=== PATIENT | male | born 1950 | race Two or more races ===

== ENCOUNTER 2017-03-16 20:02 | Inpatient (IN) | payer MEDICARE, OTHER ==
[~2017-03-16] VITALS: Ht 180.3 cm; Wt 89.0 kg
--- NOTE | 2017-03-16 20:12 | NUR ---
TO BED 1 A 66 YO MALE BIBSELF W C/O MID ANTERIOR SHARP ABDOMINAL PAIN 02/27 SINCE 1699. DENIES N/V/D. VSS. NONDIAPHORETIC. AFEBRILE. COMFORT MEASURES RENDERED. AWAITING FOR ER MD ABDUL.
--- NOTE | 2017-03-16 20:18 | NUR ---
DR FLORES AT BEDSIDE TO EVAL.
--- NOTE | 2017-03-16 20:34 | NUR ---
PATIENT TO CT.
--- NOTE | 2017-03-16 20:49 | NUR ---
STARTED A SALINE LOCK ON THE LFA G20.
[2017-03-16 20:56] LABS: BASOPHILS % (AUTO) 0.5 % (0.0-2.0); EOSINOPHILS # (AUTO) 0.1 /CMM (0.0-0.7); EOSINOPHILS % (AUTO) 0.9 % (0.0-6.0); HEMATOCRIT 46 % (39-51); HEMOGLOBIN 15.3 g/dL (13.5-17.5); LYMPHOCYTES # (AUTO) 1.5 /CMM (0.8-4.8); LYMPHOCYTES % (AUTO) 16.6 % (20.0-44.0); MEAN CORPUSCULAR HEMOGLOBIN 30 PG (26.0-33.0); MEAN CORPUSCULAR HGB CONC 33 g/dl (31.0-36.0); MEAN CORPUSCULAR VOLUME 90 fL (80-96); MONOCYTES # (AUTO) 0.7 /CMM (0.1-1.30); MONOCYTES % (AUTO) 8.2 % (2.0-12.0); NEUTROPHILS # (AUTO) 6.7 /CMM (1.8-8.9); NEUTROPHILS % (AUTO) 73.8 % (43.0-81.0); PLATELET COUNT (AUTO) 306 /CMM (150-450); RDW COEFFICIENT OF VARIATION 12.8 (11.5-15.0); RED BLOOD CELL COUNT(AUTO) 5.12 MIL/uL (4.5-6.0)
[2017-03-16 21:07] LABS: CALCIUM, SERUM 8.5 mg/dL (8.5-10.1); CREATININE 1.2 mg/dL (0.6-1.3)
[2017-03-16 21:12] LABS: ALBUMIN 3.4 g/dL (3.4-5.0); BILIRUBIN,DIRECT 0.9 mg/dL (0.0-0.2); BILIRUBIN,TOTAL 1.7 mg/dL (0.2-1.0); TOTAL PROTEIN, SERUM 6.8 g/dL (6.4-8.2)
[2017-03-16 21:24] LABS: APPEARANCE,URINE Clear (CLEAR); BILIRUBIN,URINE Negative (NEGATIVE); BLOOD, URINE Negative Ery/uL (NEGATIVE); COLOR,URINE Dark (YELLOW); KETONES,URINE Negative (NEGATIVE); LEUKOCYTE ESTERASE ,URINE Negative (NEGATIVE); NITRITE, URINE Negative (NEGATIVE); PROTEIN,URINE 30 mg/dl (NEGATIVE); UGLUCOSE Negative (NEGATIVE)
--- NOTE | 2017-03-16 21:28 | NUR ---
Raimundo white in [facility] - 03/16/17 at 2129 by PATTI PATIENT WILL BE ADMITTED INTO ROOM 323-2.
--- NOTE | 2017-03-16 21:30 | NUR ---
CORRECTION PATIENT WILL BE ADMITTED INTO ROOM 307-2.
[2017-03-16 21:38] LABS: RBC,URINE 0-2 /HPF (0-2); WBC,URINE 0-2 /HPF (0-3)
[2017-03-16 21:39] LABS: BACTERIA,URINE None seen /HPF (None Seen); SQUAMOUS EPITHELIAL CELL,UR None Seen /HPF (None Seen)
--- NOTE | 2017-03-16 21:59 | NUR ---
REPORT GIVEN TO SAIGE FOR ADMISSION AND JUNO. ONGOING PEGGY AT BEDSIDE.
[2017-03-16] MEDS ORDERED: IV NS 0.9% 1,000 ML IV PRN (22:18)
[2017-03-16 22:20] VITALS: BP 149/92
[2017-03-16] MEDS ORDERED: ONDANSETRON HCL/PF 4 MG/2 ML VIAL IVP PRN (22:30)
[2017-03-16] MEDS ORDERED: MORPHINE SULFATE INJ 2 MG/ML DISP.SYRIN IV PRN (22:30)
[2017-03-16] MEDS ORDERED: ACETAMINOPHEN 325 MG TABLET PO PRN (22:30)
[2017-03-16] MEDS ORDERED: MAG HYDROX/AL HYDROX/SIMETH 30 ML UDC PO PRN (22:30)
[2017-03-16] MEDS ORDERED: ZOLPIDEM TARTRATE 5 MG TABLET PO PRN (22:30)
[2017-03-16] MEDS ORDERED: MAGNESIUM HYDROXIDE 30 ML UDC PO PRN (22:30)
[2017-03-16] MEDS ORDERED: HYDROCODONE/APAP 5/325MG 1 EACH TABLET PO PRN (22:30)
[2017-03-16] MEDS ORDERED: Z GUARD REMEDY 2 OZ OINT TP PRN (22:30)
--- NOTE | 2017-03-16 23:10 | NUR ---
TRANSFERRED PATIENT TO TELE BED 307-2 VIA ALS PROTOCOL, NO INCIDENT NOTED.
[2017-03-16 23:30] VITALS: BP 117/84
--- NOTE | 2017-03-16 23:30 | NUR ---
CONCESSION WORKER NOTE RECEIVED PATIENT AWAKE ALERT AND ORIENTED VIA [facility] FROM ER. AT BEDSIDE. PATIENT DENIES ANY PAIN OR DISCOMFORT AT THIS TIME. PATIENT ABLE TO AMBULATE FROM [place] TO BED. PATIENT IS FROM HOME, AND STATES THAT HE HAS BEEN HAVING ON AND OFF ABDOMINAL PAIN TO HIS LUQ FOR QUITE SOME TIME. ORIENTED PATIENT TO ROOM AND TO UNIT. SKIN INTACT, WITH NO BREAKDOWN OR BRUISING NOTED. ALL BELONGINGS CHECKED AND ACCOUNTED FOR. BED LOCKED AND IN LOWEST POSITION. SIDE RAILS UP, CALL LIGHT WITHIN REACH. WAITING FOR MD ORDERS. WILL CONTINUE TO MONITOR.
[2017-03-17 04:00] VITALS: BP 132/88
--- NOTE | 2017-03-17 06:46 | NUR ---
ms rn note patient stable. All needs met and attended to. Will endorse to day shift for елена.
[2017-03-17 07:10] VITALS: BP 133/94
[2017-03-17 07:15] LABS: BASOPHILS % (AUTO) 0.4 % (0.0-2.0); EOSINOPHILS # (AUTO) 0.2 /CMM (0.0-0.7); EOSINOPHILS % (AUTO) 2.3 % (0.0-6.0); HEMATOCRIT 45 % (39-51); LYMPHOCYTES # (AUTO) 1.5 /CMM (0.8-4.8); LYMPHOCYTES % (AUTO) 21.3 % (20.0-44.0); MEAN CORPUSCULAR HEMOGLOBIN 30 PG (26.0-33.0); MEAN CORPUSCULAR HGB CONC 33 g/dl (31.0-36.0); MEAN CORPUSCULAR VOLUME 91 fL (80-96); MONOCYTES # (AUTO) 0.7 /CMM (0.1-1.30); MONOCYTES % (AUTO) 9.4 % (2.0-12.0); NEUTROPHILS # (AUTO) 4.8 /CMM (1.8-8.9); NEUTROPHILS % (AUTO) 66.6 % (43.0-81.0); PLATELET COUNT (AUTO) 279 /CMM (150-450); RDW COEFFICIENT OF VARIATION 14.1 (11.5-15.0); RED BLOOD CELL COUNT(AUTO) 4.93 MIL/uL (4.5-6.0); WHITE BLOOD COUNT (AUTO) 7.2 K/uL (4.3-11.0)
[2017-03-17 07:54] LABS: CALCIUM, SERUM 8.7 mg/dL (8.5-10.1); MAGNESIUM 2.1 mg/dL (1.8-2.4); PHOSPHORUS 2.9 mg/dL (2.5-4.9); POTASSIUM 3.7 mmol/L (3.5-5.1)
--- NOTE | 2017-03-17 08:00 | NUR ---
PROCUREMENT SERVICES MANAGER NOTES PATIENT LAYING IN BED, NO ACUTE DISTRESS, NO SOB NOTED. PATIENT IS NPO BUT TO TAKE MEDICINE WITH SIP OF WATER. CALL LIGHT WITHIN REACH. NO C/O PAIN NOTED. OBSERVING CLOSELY.
[2017-03-17] MEDS: PANTOPRAZOLE 40 MG TABLET.DR PO SCH (08:12)
[2017-03-17 11:00] LABS: ALBUMIN 3.3 g/dL (3.4-5.0); BILIRUBIN,DIRECT 0.5 mg/dL (0.0-0.2); BILIRUBIN,TOTAL 1.5 mg/dL (0.2-1.0); TOTAL PROTEIN, SERUM 6.9 g/dL (6.4-8.2)
--- NOTE | 2017-03-17 14:00 | NUR ---
MS RN NOTES PATIENT RESTING IN BED COMFORTABLY. NO C/O PAIN NOTED. HAD ABDOMEN MRI DONE. NO DISCOMFORT NOTED. ALL NEEDS MET. MONITORING CLOSELY.
--- NOTE | 2017-03-17 14:28 | NUR ---
PT & FAMILY REFUSES TO DO CT ABD & PEL SCAN UNTIL THEY TALK TO DR. KOLTON SMILEY, ARTEM BOWEN IS AWARE. RN WILL CALL BACK WHEN READY FOR SCAN.
[2017-03-17] MEDS ORDERED: IV NS 0.9% 250 ML IV ONE (15:05)
[2017-03-17] MEDS ORDERED: IOHEXOL-300 100 ML VIAL IV ONE (15:05)
[2017-03-17 16:00] VITALS: BP 140/95
--- NOTE | 2017-03-17 19:04 | NUR ---
MS RN NOTES PATIENT DISAGREE TO SIGN THE CONSENT FOR ABDOMEN/PELVIS CT WITH CONTRAST, ANGEL RUTH DISCUSSED THE REASON OF HAVING THIS TEST DONE & PATIENT AGREED. NO C/O PAIN NOTED. ALL MEDS ADMINISTERED ORDERED. BED IN LOW & LOCKED POSITION. ALL NEEDS MET. CALL LIGHT WITHIN REACH. WILL ENDORSE TO PM SHIFT.
--- NOTE | 2017-03-17 19:10 | NUR ---
RN NOTE RECEIVED REPORT. PT AAOX4, NO S/S OR C/O ANY PAIN OR DISCOMFORT. NO DISTRESS NOTED. IV INTACT AND PATENT. WILL CONT TO MONITOR. CALL LIGHT IN REACH.
[2017-03-17 20:00] VITALS: BP 150/98
--- NOTE | 2017-03-18 06:45 | NUR ---
RN NTOE NO SIGNIFICANT EVENTS OVERNIGHT. PT SLEPT WELL. NO S/S OF ANY DISTRESS AT THIS TIME. IV INTACT AND PATENT, PT REFUSING IV FLUISD - GOOD PO INTAKE. ALL NEEDS ATTENED TO, WILL F/U WITH DAY SHIFT FOR JUNO.
[2017-03-18 07:05] LABS: BASOPHILS % (AUTO) 0.6 % (0.0-2.0); EOSINOPHILS # (AUTO) 0.2 /CMM (0.0-0.7); EOSINOPHILS % (AUTO) 2.2 % (0.0-6.0); HEMATOCRIT 45 % (39-51); HEMOGLOBIN 15.4 g/dL (13.5-17.5); LYMPHOCYTES # (AUTO) 1.5 /CMM (0.8-4.8); LYMPHOCYTES % (AUTO) 19.1 % (20.0-44.0); MEAN CORPUSCULAR HEMOGLOBIN 31 PG (26.0-33.0); MEAN CORPUSCULAR HGB CONC 34 g/dl (31.0-36.0); MEAN CORPUSCULAR VOLUME 90 fL (80-96); MONOCYTES # (AUTO) 0.6 /CMM (0.1-1.30); MONOCYTES % (AUTO) 7.4 % (2.0-12.0); NEUTROPHILS # (AUTO) 5.5 /CMM (1.8-8.9); NEUTROPHILS % (AUTO) 70.7 % (43.0-81.0); PLATELET COUNT (AUTO) 272 /CMM (150-450); RDW COEFFICIENT OF VARIATION 13.8 (11.5-15.0); RED BLOOD CELL COUNT(AUTO) 5.01 MIL/uL (4.5-6.0); WHITE BLOOD COUNT (AUTO) 7.8 K/uL (4.3-11.0)
[2017-03-18 07:29] LABS: ALBUMIN 3.2 g/dL (3.4-5.0); BILIRUBIN,DIRECT 0.2 mg/dL (0.0-0.2); CALCIUM, SERUM 8.4 mg/dL (8.5-10.1); POTASSIUM 3.9 mmol/L (3.5-5.1); TOTAL PROTEIN, SERUM 6.8 g/dL (6.4-8.2)
[2017-03-18 08:00] VITALS: BP 156/97
--- NOTE | 2017-03-18 08:00 | NUR ---
MS RN NOTES PATIENT AWAKE IN BED. NO C/O PAIN, NO DISTRESS NOTED. BED IN LOW & LOCKED POSITION. CALL LIGHT WITHIN REACH. CONTINUING TO MONITOR.
[2017-03-18] MEDS: PANTOPRAZOLE 40 MG TABLET.DR PO SCH (08:06)
--- NOTE | 2017-03-18 12:00 | NUR ---
MS RN NOTES PATIENT SEEN BY DR. LUCAS, DISCUSSED ABOUT HIS HEALTH CONDITION, LABS & RADIOLOGY RESULTS. PATIENT IS IN STABLE CONDITION. NO DISCOMFORT NOTED. WIILL BE DISCHARGED HOME PER MD ORDERS.
--- NOTE | 2017-03-18 13:10 | NUR ---
MS RN NOTES NEW ORDER RECEIVED FROM MD TO DISCHARGE THE PATIENT HOME. IN STABLE CONDITION . NO DISCOMFORT OR DISTRESS NOTED. IV LINE REMOVED. DISCHARGE INSTRUCTIONS GIVEN & PATIENT VERBALIZED UNDERSTANDING OF THE INSTRUCTIONS. SKIN CLEAR & INTACT. PATIENT PICKED UP BY HIS IN STABLE CONDITION.
== END 2017-03-18 13:10 | disposition home or self-care (01) | DRG 446 ==
LOC: ER 20:05 → TELE 21:34 → MED 03-17 09:08
PROVIDERS: ADMIT Internal Medicine; ATTEND Internal Medicine
DX: K80.12 Calculus of gallbladder with acute and chronic cholecystitis without obstruction (principal); N28.1 Cyst of kidney, acquired; I10 Essential (primary) hypertension; E78.5 Hyperlipidemia, unspecified; K57.30 Diverticulosis of large intestine without perforation or abscess without bleeding; R74.0 Nonspecific elevation of levels of transaminase and lactic acid dehydrogenase [LDH]; D18.09 Hemangioma of other sites
CPT/HCPCS: 36415; 71250-TC; 74181-TC; 76705-TC; 80048-TC; 80061-TC; 80074; 80076-TC; 81000-TC; 83690-TC; 83735-TC; 84100-TC; 85025-TC; 87081-TC; A4606; J7030; J7050; Q9967; Z7610

== ENCOUNTER 2018-10-09 20:19 | Emergency (ER) | payer MEDICARE, OTHER ==
[~2018-10-09] VITALS: Ht 177.8 cm; Wt 86.2 kg
--- NOTE | 2018-10-09 21:32 | NUR ---
PT BIB HIS SON WITH A C/O GLF WITH RT UPPER EYE HEAD LAC AND NOSE LAC. PT STATED THAT HE WAS AT THE [facility] AND WAS WALKING DOWN THE STAIR AND LOST HIS STEP 3 STEPS FROM THE BOTTOM. PT HIS HIS HEAD ON THE CONCRETE. PT DENIES KO
--- NOTE | 2018-10-09 22:00 | NUR ---
SUTURE SET UP DONE AT THE BEDSIDE.
[2018-10-09] MEDS ORDERED: LIDOCAINE HCL/MPF 1% 30 ML VIAL IJ ONE (22:03)
[2018-10-09] MEDS ORDERED: TDAP [DIPH/PERTUSSIS/TET] 0.5 ML VIAL IM ONE ×2 (22:04→22:30)
--- NOTE | 2018-10-09 22:05 | NUR ---
PT LEFT FOR CT VIA RNEY
[2018-10-09] MEDS ORDERED: LIDOCAINE 1% INJ 50 ML MDV IJ ONE (22:30)
--- NOTE | 2018-10-09 22:37 | NUR ---
PT RETURNED FROM CT.
--- NOTE | 2018-10-09 22:59 | NUR ---
KEVIN CALLED TO READ
--- NOTE | 2018-10-10 | NUR ---
Patient discharged to home in stable condition. Written and verbal after care instructions given. Patient verbalizes understanding of instruction AND RX. PT'S SON IS DRIVING PT HOME. PT'S BP IS SLIGHTLY ELEVATED. NO C/O HEADACHE, N/V, OR BLURRED VISION. PT WAS INSTRUCTED TO F/U WITH PMD RE: BP. PT REC'D A COPY OF ALL IMAGING AND A COPY OF THE DISK.
[2018-10-10 00:04] VITALS: BP 148/107
== END 2018-10-10 00:01 | disposition home or self-care (01) ==
LOC: ER 20:21
DX: S02.2XXA Fracture of nasal bones, initial encounter for closed fracture (principal); S01.81XA Laceration without foreign body of other part of head, initial encounter; K04.7 Periapical abscess without sinus; F10.10 Alcohol abuse, uncomplicated; Y90.9 Presence of alcohol in blood, level not specified; Z23 Encounter for immunization; W10.8XXA Fall (on) (from) other stairs and steps, initial encounter; Y93.89 Activity, other specified; Y92.89 Other specified places as the place of occurrence of the external cause; Y99.8 Other external cause status
CPT/HCPCS: 12011; 70450; 70486; 90471; 90715; 99284; A6402; J3490